=== PATIENT | male | born 1975 | race Caucasian/White ===

== ENCOUNTER 2016-11-30 17:34 | Emergency (ER) | payer OTHER ==
[2016-11-30] MEDS ORDERED: Sodium Chloride 0.9% 10 ML Syringe FLUSH PRN (17:58)
[2016-11-30] MEDS ORDERED: Sodium Chloride 0.9% 1,000 ML IV ONE ×2 (17:58→19:26)
[2016-11-30] MEDS ORDERED: Ketorolac 30 MG/ML SDV IVPUSH ONE (17:59)
[2016-11-30] MEDS ORDERED: Morphine 4 MG/ML Syringe IVPUSH ONE ×2 (17:59→19:26)
[2016-11-30] MEDS ORDERED: Ondansetron 4 MG/2 ML SDV IVPUSH ONE (17:59)
[2016-11-30 19:30] VITALS: BP 140/78
--- NOTE | 2016-11-30 20:10 | EDM.PDOC ---
ED HPI GENERAL MEDICAL PROBLEM - General Chief Complaint: Flank Pain Stated Complaint: R SIDE FLANK PAIN Time Seen by Provider: 11/30/16 19:45 Source of Information: Reports: Patient History Limitations: Reports: No Limitations - History of Present Illness INITIAL COMMENTS - FREE TEXT/NARRATIVE: Corwin is a 41 year old male who presents to the ED today with c/o sudden onset of right flank pain that radiates to right groin and into scrotum. Patient endorses nausea. Patient denies any injury or hx of kidney stones. Patient is otherwise healthy. He denies any blood in his urine. Onset: Sudden Duration: Hour(s): (3) Right Flank Pain Score (Numeric/FACES): 6 - Related Data Allergies Allergy/AdvReac Type Severity Reaction Status Date / Time cefaclor [From Ceclor] Allergy Cannot Verified 11/30/16 17:57 Remember Sulfa (Sulfonamide Allergy Cannot Verified 11/30/16 17:57 Antibiotics) Remember Home Meds: Home Meds NK [No Known Home Meds] 12/18/14 [History] Past Medical History Cardiovascular History: Reports: High Cholesterol Gastrointestinal History: Reports: GERD Musculoskeletal History: Reports: Back Pain, Chronic, Fracture, Other (See Below ) Other Musculoskeletal History: Fx nose,fingers,wrist DDD Neurological History: Reports: Concussion Psychiatric History: Reports: Anxiety - Infectious Disease History Infectious Disease History: Reports: Chicken Pox - Past Surgical History HEENT Surgical History: Reports: Tonsillectomy, Other (See Below) Other HEENT Surgeries/Procedures: septoplasty GI Surgical History: Reports: Other (See Below) Other GI Surgeries/Procedures: umbilical hernia Musculoskeletal Surgical History: Reports: Other (See Below) Other Musculoskeletal Surgeries/Procedures:: Impingement and labrium tears repaired Social & Family History - Tobacco Use Smoking Status *Q: Never Smoker Second Hand Smoke Exposure: No - Caffeine Use Caffeine Use: Reports: Coffee - Alcohol Use Days Per Week of Alcohol Use: 4 Number of Drinks Per Day: 3 Total Drinks Per Week: 12 Date of Last Drink: 11/30/16 Time of Last Drink: 14:00 - Recreational Drug Use Recreational Drug Use: No ED ROS GENERAL - Review of Systems Review Of Systems: ROS reveals no pertinent complaints other than HPI. ED EXAM, RENAL/ - Physical Exam Exam: See Below Exam Limited By: No Limitations General Appearance: Anxious, Moderate Distress Ears: Normal External Exam Nose: Normal Mucosa Throat/Mouth: Normal Inspection Head: Atraumatic Neck: Normal Inspection, Supple, Non-Tender Respiratory/Chest: No Respiratory Distress, Lungs Clear, Normal Breath Sounds Cardiovascular: Normal Peripheral Pulses, Regular Rate, Rhythm, No Murmur GI/Abdominal: Normal Bowel Sounds, Soft, Non-Tender (Male) Exam: Other (Right CVA tenderness) Back Exam: CVA Tenderness (R) Extremities: Normal Inspection Neurological: Alert, Oriented Psychiatric: Normal Affect, Anxious Skin Exam: Warm, Dry Lymphatic: No Adenopathy Course - Vital Signs Text/Narrative:: Corwin is an otherwise healthy 41 year old male who presents to the ED today with c/o sudden onset of right flank pain and nausea. Patient on arrival has findings concerning for ureteral stone. IV established and patient was given IV Toradol, Morphine and Zofran with improvement in his symptoms. CBC returns with normal white count and stable HGB. Creatinine is the high end of normal at 1.1. Potassium mildly low at 3.1. Patient given oral replacement here. Calcium mildly low at 8. UA negative for infection/blood. CT scan obtained, non contrast and confirms a 3 mm stone in the right mid ureter with mild right sided hydronephrosis. I discussed findings with patient, he should be able to pass this at home. I will start him on flomax and norco/ibuprofen for pain as well as ODT zofran for nausea as needed. Patient to strain urine and bring stone to PCP follow up next week for evaluation. Patient encouraged to drink plenty of fluids. Reasons to return to the ED discussed, patient and agreeable. Narcotic safety discussed in detail. Questions answered and patient discharged from the ED with his driving and in stable condition. Last Recorded V/S: Last Vital Signs Temp 36.7 C 11/30/16 19:27 Pulse 70 11/30/16 19:27 Resp 16 11/30/16 19:27 BP 140/78 11/30/16 19:27 Pulse Ox 93 L 11/30/16 19:27 - Orders/Labs/Meds Orders: Active Orders 24 hr Category Date Time Status Peripheral IV Care [RC] . DIRECTED Care 11/30/16 17:58 Active Abdomen Pelvis wo Cont [CT] Stat Exams 11/30/16 18:55 Taken Sodium Chloride 0.9% [Normal Saline] 1,000 ml Med 11/30/16 19:26 Active IV .BOLUS Sodium Chloride 0.9% [Saline Flush] Med 11/30/16 17:58 Active 10 ml FLUSH ASDIRECTED PRN Peripheral IV Insertion Adult [OM.PC] Routine Oth 11/30/16 17:58 Ordered Medication Orders Sodium Chloride (Normal Saline) 1,000 mls @ 999 mls/hr IV .BOLUS ONE Stop: 11/30/16 20:26 Last Admin: 11/30/16 19:38 Dose: 999 mls/hr Sodium Chloride (Saline Flush) 10 ml FLUSH ASDIRECTED PRN PRN Reason: Keep Vein Open Labs: Laboratory Tests 11/30/16 11/30/16 11/30/16 Range/Units 18:06 18:06 19:48 WBC 6.4 (4.5-11.0) K/uL RBC 4.74 (4.30-5.90) M/uL Hgb 14.8 (12.0-15.0) g/dL Hct 41.1 (40.0-54.0) % MCV 87 (80-98) fL MCH 31 (27-31) pg MCHC 36 (32-36) % Plt Count 243 (150-400) K/uL Neut % (Auto) 64 (36-66) % Lymph % (Auto) 25 (24-44) % [place] % (Auto) 8 H (2-6) % Eos % (Auto) 2 (2-4) % Baso % (Auto) 1 (0-1) % Sodium 138 L (140-148) mmol/L Potassium 3.1 L (3.6-5.2) mmol/L Chloride 100 (100-108) mmol/L Carbon Dioxide 23 (21-32) mmol/L Anion Gap 18.1 H (5.0-14.0) mmol/L BUN 11 (7-18) mg/dL Creatinine 1.1 (0.8-1.3) mg/dL Est Cr Clr Drug Dosing TNP Estimated GFR (MDRD) > 60 (>60) Glucose 119 H (74-106) mg/dL Calcium 8.0 L (8.5-10.1) mg/dL Total Bilirubin 0.5 (0.2-1.0) mg/dL AST 36 (15-37) U/L ALT 59 (12-78) U/L Alkaline Phosphatase 98 (46-116) U/L Total Protein 8.0 (6.4-8.2) g/dL Albumin 3.9 (3.4-5.0) g/dL Globulin 4.1 H (2.3-3.5) g/dL Albumin/Globulin Ratio 1.0 L (1.2-2.2) Urine Color Yellow Urine Appearance Clear Urine pH 5.0 (4.5-8.0) Ur Specific [place] 1.020 (1.008-1.030) Urine Protein Negative (NEGATIVE) mg/dL Urine Glucose (UA) Normal (NEGATIVE) mg/dL Urine Ketones Negative (NEGATIVE) mg/dL Urine Occult Blood Moderate (NEGATIVE) Urine Nitrite Negative (NEGAITVE) Urine Bilirubin Negative (NEGATIVE) Urine Urobilinogen Normal (NORMAL) mg/dL Ur Leukocyte Esterase Negative (NEGATIVE) Urine RBC 0-5 (0-5) Urine WBC 0-5 (0-5) Ur Epithelial Cells Rare Amorphous Sediment Not seen Urine Bacteria Few Urine Mucus Few Meds: Medications Generic Name Dose Route Start Last Admin Trade Name Freq PRN Reason Stop Dose Admin Sodium Chloride 1,000 mls @ 999 mls/hr 11/30/16 19:26 11/30/16 19:38 Normal Saline IV 11/30/16 20:26 999 mls/hr .BOLUS ONE Administration Sodium Chloride 10 ml 11/30/16 17:58 Saline Flush FLUSH ASDIRECTED PRN Keep Vein Open Discontinued Medications Generic Name Dose Route Start Last Admin Trade Name Ivanq PRN Reason Stop Dose Admin Sodium Chloride 1,000 mls @ 999 mls/hr 11/30/16 17:58 11/30/16 18:05 Normal Saline IV 11/30/16 18:58 999 mls/hr .BOLUS ONE Administration Ketorolac Tromethamine 30 mg 11/30/16 17:59 11/30/16 18:08 Toradol IVPUSH 11/30/16 18:00 30 mg ONETIME ONE Administration Morphine Sulfate 4 mg 11/30/16 17:59 11/30/16 18:11 Morphine IVPUSH 11/30/16 18:00 4 mg ONETIME ONE Administration Morphine Sulfate 4 mg 11/30/16 19:26 11/30/16 19:41 Morphine IVPUSH 11/30/16 19:27 4 mg ONETIME ONE Administration Ondansetron HCl 4 mg 11/30/16 17:59 11/30/16 18:06 Zofran IVPUSH 11/30/16 18:00 4 mg ONETIME ONE Administration Departure - Departure Time of Disposition: 21:00 Disposition: Home, Self-Care 01 Condition: good Clinical Impression: Ureteral stone with hydronephrosis - Discharge Information Instructions: Kidney Stones, [id number] Forms: ED Department Discharge Additional Instructions: Take ibuprofen for pain, [place] for severe pain. Take flomax as prescribed. Drink plenty of fluids and strain urine. - My Orders Last 24 Hours: My Active Orders 11/30/16 17:58 Peripheral IV Care [RC] . DIRECTED Sodium Chloride 0.9% [Saline Flush] 10 ml FLUSH ASDIRECTED PRN Peripheral IV Insertion Adult [OM.PC] Routine 11/30/16 18:55 Abdomen Pelvis wo Cont [CT] Stat 11/30/16 19:26 Sodium Chloride 0.9% [Normal Saline] 1,000 ml IV .BOLUS - Assessment/Plan Last 24 Hours: My Active Orders 11/30/16 17:58 Peripheral IV Care [RC] . DIRECTED Sodium Chloride 0.9% [Saline Flush] 10 ml FLUSH ASDIRECTED PRN Peripheral IV Insertion Adult [OM.PC] Routine 11/30/16 18:55 Abdomen Pelvis wo Cont [CT] Stat 11/30/16 19:26 Sodium Chloride 0.9% [Normal Saline] 1,000 ml IV .BOLUS
[2016-11-30] MEDS ORDERED: Potassium Chloride 20 MEQ Tab.ER PO ONE (20:14)
[2016-11-30] MEDS ORDERED: Tamsulosin 0.4 MG Cap.ER PO ONE (20:17)
== END 2016-11-30 20:46 | disposition home or self-care (01) ==
LOC: JP.ED 17:34
DX: N13.2 Hydronephrosis with renal and ureteral calculous obstruction (principal); E78.00 Pure hypercholesterolemia, unspecified; K21.9 Gastro-esophageal reflux disease without esophagitis; G89.29 Other chronic pain; M54.9 Dorsalgia, unspecified; Z90.89 Acquired absence of other organs; Z88.2 Allergy status to sulfonamides; Z88.8 Allergy status to other drugs, medicaments and biological substances
CPT/HCPCS: 36415; 74176; 80053; 81001; 85025; 96361; 96374; 96375; 96376; 99284; A9270; J1885; J2270; J2405; J7040